=== PATIENT | male | born 1955 | race Caucasian/White ===

== ENCOUNTER 2016-09-13 22:45 | Emergency (ER) | payer OTHER ==
--- NOTE | ~2016-09-13 | CR229 ---
[facility] A Service of [facility] RADIOLOGY TEXT RESULTS PATIENT: IGNACIO RODRIGUEZ LOCATION: [facility] : 55 UNIT #: [id number] AGE: [address]: Nallely Woodward APRN SEX: M ORDER DR: [id number] [facility] [address] [place], [place] [address] [id number] E MR#: [id number] #: [id number] NAME: IGNACIO RODRIGUEZ : 1955 SEX: M STUDY DATE/TIME: 09/13/2016 23:19 UNIT: [facility] ROOM: STUDY DESCRIPTION: CR Shoulder Min 2 View Lt Attending Physician: Nallely Woodward A.P.R.N. Ordering Physician: Charlie Quinones M.D. MEDICAL IMAGING REPORT This report is preliminary unless electronic signature is present EXAM Left shoulder, 09/13 at 23:19 INDICATIONS Left shoulder pain after falling today. FINDINGS 3 views of the left shoulder were obtained. 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 There is no AC joint separation. There is no glenohumeral dislocation. No acute fractures. IMPRESSION Apparent os acromiale. No fracture or dislocation is seen. Dictated by... Diego Pereira Jr., M.D. THIS IS AN ELECTRONICALLY VERIFIED REPORT Diego Pereira Jr., M.D. at 09/14/2016 10:13 PM JUNIK/basia TD: 09/14/2016 00:35 JOB #: [id number] MEDICAL IMAGING REPORT Page 1 of 1 COPY
[~2016-09-13 22:45] MED LIST: ACTOPLUS MET 151 TA2 PO; AMLODIPINE BESYL5 MG PO; B-121000 MC1 PO; CHOLESTEROL MED; COLACE PO; COUMADIN PO; COZAAR100 MG PO; DAKIN'S MODIF1000 ML EXT; DOC-Q-LACE100 MG PO; DOXYCYCLINE HY100 M4 PO; FERRO-TIME325 MG PO; FLEXERIL10 MG PO; GABAPENTIN300 M2 PO; GABAPENTIN300 MG PO; HYDROCHLOROTHIA25 MG PO; HYDROCODONE/APA1 T16 PO; IBUPROFEN800 MG PO; LEVAQUIN750 M1 PO; LOSARTAN POTAS100 MG PO; LOVENOX SUBQ; LOVENOX100 MG/ML SUBQ; MEVACOR PO; MEVACOR40 MG PO; NEURONTIN300 MG PO; NORVASC PO; OXYCODON-ACETA1 EAC1 PO; PANTOPRAZOLE SO40 MG PO; PERCOCET5/325 PO; PIOGLITAZONE-M1 EAC1 PO; PREDNISONE PO; PROAIR HFA8.5 GM IH; PROTONIX PO; VANCOCIN HCL250 M1 IV; VITAMIN B-121000 MCG PO; WARFARIN SODIUM4 M1 PO; XARELTO20 MG PO; [UNRECOGNIZED DRUG - CODE] PO
== END 2016-09-14 04:50 | disposition home or self-care (01) ==
LOC: CED 22:45
DX: S46.912A Strain of unspecified muscle, fascia and tendon at shoulder and upper arm level, left arm, initial encounter (principal); I10 Essential (primary) hypertension; J44.9 Chronic obstructive pulmonary disease, unspecified; F17.210 Nicotine dependence, cigarettes, uncomplicated; Z79.899 Other long term (current) drug therapy; Z79.891 Long term (current) use of opiate analgesic; X58.XXXA Exposure to other specified factors, initial encounter; Y92.59 Other trade areas as the place of occurrence of the external cause
CPT/HCPCS: 73030; 99283